=== PATIENT | male | born 1975 | race Caucasian/White ===

== ENCOUNTER 2020-05-02 09:36 | Outpatient (CLI) | payer SELFPAY ==
[2020-05-02 11:06] LABS: Alanine Aminotransferase 69 U/L (16-63); Albumin Level 4.4 g/dL (3.4-5.0); Alkaline Phosphatase 64 U/L (46-116); Anion Gap 10 mmol/L (8-16); Aspartate Amino Transferase 28 U/L (15-37); Bilirubin,Total 0.4 mg/dL (0.00-1.00); Blood Urea Nitrogen 11 mg/dL (7-18); Calcium 9.3 mg/dL (8.5-10.1); Carbon Dioxide 27 mmol/L (21-32); Chloride 103 mmol/L (98-108); Cholesterol 200 mg/dL (0-200); Estimated Glomerular Filt Rate > 60; Glucose 98 mg/dL (70-99); HDL Direct 55 mg/dL (40-60); LDL Cholesterol Calculated 119 mg/dL (<130); Osmolality Calculated 289 mOsm/kg (285-295); Potassium 4.8 mmol/L (3.5-5.1); Sodium 140 mmol/L (136-145); Triglycerides 132 mg/dL (0-150)
== END 2020-05-02 09:37 | disposition home or self-care (01) ==
LOC: CHSLAB 09:39
PROVIDERS: PCP Internal Medicine; Visit Provider Internal Medicine
DX: E78.5 Hyperlipidemia, unspecified (principal)
CPT/HCPCS: 36415; 80053; 80061

== ENCOUNTER 2021-02-01 16:47 | Outpatient (CLI) | payer OTHER, SELFPAY ==
--- NOTE | ~2021-02-01 | XR_ITS ---
EXAMINATION: XR wrist RT min 3V DATE: 02/01/2021 17:17 INDICATION: Posterior right wrist pain TECHNIQUE: Posteroanterior, ulnar deviation, oblique, and lateral views of the right wrist were obtai abhinav. COMPARISON: 03/23/2008 FINDINGS: Old healed fracture deformity at the radial styloid process. No acute fracture. Advanced osteoarthrit is at the midcarpal joint involving the articulation between the lunate, the capitate and hamate with remodeling and loss of bone stock at the proximal pole of the hamate and prominent dorsal osteophyte s arising from the lunate and hamate. Mild osteoarthritis of the radiocarpal and triscaphe joints. IMPRESSION: 1. 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 Reviewed, dictated and finalized at location A.
== END 2021-02-01 16:48 | disposition home or self-care (01) ==
LOC: CHSIMG 16:49
PROVIDERS: PCP Internal Medicine; Visit Provider Internal Medicine
DX: M25.531 Pain in right wrist (principal)
CPT/HCPCS: 73110

== ENCOUNTER 2021-03-31 17:58 | Outpatient (CLI) | payer OTHER, SELFPAY ==
[2021-03-31 18:47] LABS: SARS-CoV-2 RNA PCR Positive (Negative)
== END 2021-03-31 17:59 | disposition home or self-care (01) ==
LOC: CHSLAB 18:01
PROVIDERS: PCP Internal Medicine; Visit Provider Internal Medicine
DX: U07.1 COVID-19 (principal)
CPT/HCPCS: C9803; U0003; U0005

== ENCOUNTER 2021-06-14 16:57 | Outpatient (CLI) | payer OTHER, SELFPAY ==
[2021-06-14 17:32] LABS: Hemoglobin A1C 6.2 % (<5.7)
[2021-06-14 17:49] LABS: Alanine Aminotransferase 71 U/L (16-63); Albumin Level 4.2 g/dL (3.4-5.0); Alkaline Phosphatase 81 U/L (46-116); Anion Gap 11 mmol/L (8-16); Aspartate Amino Transferase 26 U/L (15-37); Bilirubin,Total 0.4 mg/dL (0.00-1.00); Blood Urea Nitrogen 11 mg/dL (7-18); Carbon Dioxide 28 mmol/L (21-32); Chloride 102 mmol/L (98-108); Cholesterol 171 mg/dL (0-200); Estimated Glomerular Filt Rate > 60; Glucose 102 mg/dL (70-99); HDL Direct 57 mg/dL (40-60); LDL Cholesterol Calculated 91 mg/dL (<130); Osmolality Calculated 291 mOsm/kg (285-295); Potassium 4.1 mmol/L (3.5-5.1); Sodium 141 mmol/L (136-145); Total Protein 7.8 g/dL (6.4-8.2); Triglycerides 113 mg/dL (0-150)
== END 2021-06-14 16:58 | disposition home or self-care (01) ==
LOC: CHSLAB 16:59
PROVIDERS: PCP Internal Medicine; Visit Provider Internal Medicine
DX: E78.5 Hyperlipidemia, unspecified (principal); R73.01 Impaired fasting glucose
CPT/HCPCS: 36415; 80053; 80061; 83036

== ENCOUNTER 2022-07-01 07:05 | Outpatient (CLI) | payer OTHER, SELFPAY ==
[2022-07-01 07:19] LABS: Basophils Absolute Auto 0.07 K/mm3 (0.00-0.10); Basophils Percent Auto 0.8 % (0.0-1.0); Eosinophils Absolute Auto 0.28 K/mm3 (0.02-0.50); Eosinophils Percent Auto 3.2 % (1.0-6.0); Hematocrit 41.9 % (40.0-54.0); Hemoglobin 14.2 g/dL (14.0-18.0); Immature Granulocyte Absolute 0.06 K/mm3 (0.00-0.00); Immature Granulocyte Percent A 0.7 % (0.0-0.0); Lymphocytes Absolute Auto 2.63 K/mm3 (1.10-4.50); Lymphocytes Percent Auto 30.5 % (18.0-42.0); Mean Corpuscular HGB Conc 33.9 g/dL (32.0-36.0); Mean Corpuscular Hemoglobin 30.3 pg (27.0-31.0); Mean Corpuscular Volume 89.5 fL (78.0-102.0); Mean Platelet Volume 8.8 fl (8.7-11.0); Monocytes Absolute Auto 0.87 K/mm3 (0.10-0.90); Monocytes Percent Auto 10.1 % (2.0-11.0); Neutrophils Absolute Auto 4.7 K/mm3 (1.7-7.2); Neutrophils Percent Auto 54.7 % (50.0-70.0); Platelet Count Result 330 K/mm3 (150-420); Red Blood Count 4.68 M/mm3 (4.70-6.10); Red Cell Distribution Width 12.4 % (11.6-14.4); White Blood Count 8.6 K/mm3 (4.8-10.8)
[2022-07-01 07:30] LABS: Hemoglobin A1C 7.5 % (<5.7)
[2022-07-01 08:06] LABS: Alanine Aminotransferase 74 U/L (16-63); Alkaline Phosphatase 87 U/L (46-116); Anion Gap 9 mmol/L (8-16); Aspartate Amino Transferase 25 U/L (15-37); Bilirubin,Total 0.5 mg/dL (0.00-1.00); Blood Urea Nitrogen 13 mg/dL (7-18); Calcium 8.9 mg/dL (8.5-10.1); Carbon Dioxide 28 mmol/L (21-32); Chloride 99 mmol/L (98-108); Cholesterol 170 mg/dL (0-200); Creatine Kinase 94 U/L (39-308); Estimated Glomerular Filt Rate > 60; Glucose 180 mg/dL (70-99); HDL Direct 47 mg/dL (40-60); LDL Cholesterol Calculated 100 mg/dL (<130); Osmolality Calculated 287 mOsm/kg (285-295); Potassium 4.8 mmol/L (3.5-5.1); Sodium 136 mmol/L (136-145); Total Protein 7.6 g/dL (6.4-8.2); Triglycerides 117 mg/dL (0-150)
== END 2022-07-01 07:06 | disposition home or self-care (01) ==
LOC: CHSLAB 07:07
PROVIDERS: PCP Internal Medicine; Visit Provider Internal Medicine
DX: E78.2 Mixed hyperlipidemia (principal); R73.01 Impaired fasting glucose
CPT/HCPCS: 36415; 80053; 80061; 82550; 83036; 85025

== ENCOUNTER 2023-02-13 16:25 | Emergency (ER) | payer OTHER, SELFPAY ==
[2023-02-13 16:25] VITALS: BP 131/89; PULSE 65; RESP 16; TEMP 36.7; O2SAT 98
--- NOTE | 2023-02-13 17:12 | ED.GENADULT ---
HPI - General Adult General Chief complaint: Abdominal Pain Stated complaint: abdominal pain for 6-7 days Time Seen by Provider: 02/13/23 16:35 History of Present Illness HPI narrative: Healthy 47yo man, nonsmoker, presents with intermittent abdominal pain, all quadrants, started 6 days ago, comes and goes. When it comes on is severe, then resolves after a couple of hours. No vomiting, diarrhea, bleeding, dysuria. Has never had this before. FHx only positive for DM, otherwise no cardiovascular events. Related Data Home Medications Medication Instructions Recorded Confirmed atorvastatin 40 mg tablet 40 mg PO DAILY 02/13/23 02/13/23 metformin 500 mg tablet,extended 500 mg PO DAILY 02/13/23 02/13/23 release 24 hr venlafaxine 150 mg 150 mg PO DAILY 02/13/23 02/13/23 capsule,extended release 24 hr Allergies Allergy/AdvReac Type Severity Reaction Status Date / Time No Known Allergies Allergy Verified 02/13/23 16:35 Review of Systems Review of Systems: All systems reviewed & are unremarkable except as noted in HPI and below Constitutional: Constitutional: Denies chills and Denies fever(s) ENT: Denies dysphagia Cardiovascular: Cardiovascular: Denies chest pain Respiratory: Respiratory: Denies dyspnea PMFSH Social History Social History Alcohol intake: current Exam Const: General: healthy appearing and no acute distress Nutritional Appearance: well nourished Eyes: Conjunctivae: conjunctivae normal Resp: Effort & Inspection: normal respiratory effort and not labored Cardio: Rate: regular rate GI: Inspection: non-distended GI Palp: Yes Soft to palpation and No Tenderness to palpation present (GI) Skin: General skin exam: normal color, no jaundice and no pallor Extrem: General: no clubbing, cyanosis or edema Course Vital Signs Vital signs: Vital Signs Temperature 36.7 C 02/13/23 16:25 Pulse Rate 65 02/13/23 16:25 Respiratory Rate 16 02/13/23 16:25 Blood Pressure 131/89 02/13/23 16:25 Pulse Oximetry 98 02/13/23 16:25 Oxygen Delivery Room Air 02/13/23 16:25 Temperature 36.7 C 02/13/23 16:25 Pulse Rate 65 02/13/23 16:25 Respiratory Rate 16 02/13/23 16:25 Blood Pressure 131/89 02/13/23 16:25 Pulse Oximetry 98 02/13/23 16:25 Oxygen Delivery Room Air 02/13/23 16:25 Medical Decision Making MDM Narrative Medical decision making narrative: Intermittent generalized abdominal pain, normal exam DDx likely indigestion, intestinal cramps, stomach virus, stress. No evidence of acute inflammation such as pancreatitis, cholecystitis, colitis, cystitis. No postprandial symptoms to indicate peptic ulcer or gastritis or biliary colic. No constant pain to suggest aorta. Discussed differential with pt, who would like to defer labs and imaging at this time and isntead try meds for symptomatic relief. If no improvement, he would like to then return for further workup. Vital Signs Vital Signs: Vital Signs Temperature 36.7 C 02/13/23 16:25 Pulse Rate 65 02/13/23 16:25 Respiratory Rate 16 02/13/23 16:25 Blood Pressure 131/89 02/13/23 16:25 Pulse Oximetry 98 02/13/23 16:25 Oxygen Delivery Room Air 02/13/23 16:25 Temperature 36.7 C 02/13/23 16:25 Pulse Rate 65 02/13/23 16:25 Respiratory Rate 16 02/13/23 16:25 Blood Pressure 131/89 02/13/23 16:25 Pulse Oximetry 98 02/13/23 16:25 Oxygen Delivery Room Air 02/13/23 16:25 Discharge Plan Discharge Clinical Impression: Intermittent abdominal pain Patient Disposition: Home, Self-Care Condition: Stable Instructions: Abdominal Pain (ED) Additional Instructions: Take the prescribed medications as needed for any attacks of pain or nausea. If symptoms not improving, follow-up with your regular physician for further evaluation. If pain is severe and requires immediate relief, return to the emergenc
[2023-02-13 17:25] VITALS: BP 125/60; PULSE 62; RESP 16; TEMP 36.6; O2SAT 100
[2023-02-13 17:41] LABS: Appearance Urine Clear (Clear); Bilirubin Urine Negative (Negative); Blood Urine Negative (Negative); Color Urine Light Yellow (Yellow); Glucose Urine UA Negative (Negative); Ketones Urine Negative (Negative); Leukocyte Esterase Ur Negative LEU/UL (Negative); Nitrate Urine Negative (Negative); Protein Urine Negative (Negative); Specific Grav Ur 1.015 (1.010-1.020); Urobilinogen Urine 0.2 mg/dL (0.2-1.0)
[2023-02-13 17:44] LABS: Add Urine Microscopic? NO
== END 2023-02-13 17:40 | disposition home or self-care (01) ==
PROVIDERS: Emergency Provider Emergency Medicine; PCP Internal Medicine
DX: R10.9 Unspecified abdominal pain (principal); Z79.84 Long term (current) use of oral hypoglycemic drugs
CPT/HCPCS: 81003; 99283

== ENCOUNTER 2023-03-04 09:36 | Outpatient (CLI) | payer OTHER, SELFPAY ==
[2023-03-04 10:20] LABS: Basophils Absolute Auto 0.04 K/mm3 (0.00-0.10); Basophils Percent Auto 0.5 % (0.0-1.0); Eosinophils Absolute Auto 0.72 K/mm3 (0.02-0.50); Eosinophils Percent Auto 9.5 % (1.0-6.0); Hematocrit 46.4 % (40.0-54.0); Hemoglobin 15.7 g/dL (14.0-18.0); Immature Granulocyte Absolute 0.02 K/mm3 (0.00-0.00); Immature Granulocyte Percent A 0.3 % (0.0-0.0); Lymphocytes Absolute Auto 2.32 K/mm3 (1.10-4.50); Lymphocytes Percent Auto 30.6 % (18.0-42.0); Mean Corpuscular HGB Conc 33.8 g/dL (32.0-36.0); Mean Corpuscular Hemoglobin 30.8 pg (27.0-31.0); Mean Platelet Volume 8.8 fl (8.7-11.0); Monocytes Absolute Auto 0.66 K/mm3 (0.10-0.90); Monocytes Percent Auto 8.7 % (2.0-11.0); Neutrophils Absolute Auto 3.8 K/mm3 (1.7-7.2); Neutrophils Percent Auto 50.4 % (50.0-70.0); Platelet Count Result 288 K/mm3 (150-420); Red Cell Distribution Width 12.1 % (11.6-14.4); White Blood Count 7.6 K/mm3 (4.8-10.8)
[2023-03-04 10:29] LABS: Alanine Aminotransferase 45 U/L (16-63); Albumin Level 4.4 g/dL (3.4-5.0); Alkaline Phosphatase 91 U/L (46-116); Anion Gap 7 mmol/L (8-16); Aspartate Amino Transferase 19 U/L (15-37); Bilirubin,Total 0.7 mg/dL (0.00-1.00); Blood Urea Nitrogen 16 mg/dL (7-18); Calcium 9.9 mg/dL (8.5-10.1); Carbon Dioxide 30 mmol/L (21-32); Chloride 102 mmol/L (98-108); Cholesterol 163 mg/dL (0-200); Creatine Kinase 86 U/L (39-308); Estimated Glomerular Filt Rate > 60; Glucose 112 mg/dL (70-99); HDL Direct 55 mg/dL (40-60); LDL Cholesterol Calculated 93 mg/dL (<130); Osmolality Calculated 290 mOsm/kg (285-295); Potassium 4.9 mmol/L (3.5-5.1); Sodium 139 mmol/L (136-145); Total Protein 7.9 g/dL (6.4-8.2); Triglycerides 75 mg/dL (0-150)
== END 2023-03-04 09:37 | disposition home or self-care (01) ==
LOC: CHSLAB 09:38
PROVIDERS: PCP Internal Medicine; Visit Provider Internal Medicine
DX: N39.0 Urinary tract infection, site not specified (principal); E78.2 Mixed hyperlipidemia; E11.65 Type 2 diabetes mellitus with hyperglycemia
CPT/HCPCS: 36415; 80053; 80061; 82550; 83036; 85025

== ENCOUNTER 2024-02-28 17:01 | Outpatient (CLI) | payer OTHER, SELFPAY ==
--- NOTE | ~2024-02-28 | XR_ITS ---
EXAMINATION: XR shoulder LT min 2V DATE: 02/28/2024 17:18 INDICATION: Left shoulder pain. TECHNIQUE: 4 views of left shoulder were obtained. COMPARISON: None. FINDINGS: Alignment is normal. No fracture. Glenohumeral joint is normal. There is moderate acromiocl avicular joint osteoarthritis. IMPRESSION: 1. Moderate left acromioclavicular joint osteoarthritis. Reviewed, dictated and finalized at location A.
--- NOTE | ~2024-02-28 | XR_ITS ---
EXAMINATION: XR shoulder RT min 2V DATE: 02/28/2024 17:17 INDICATION: Shoulder pain. TECHNIQUE: 4 views of right shoulder were obtained. COMPARISON: None. FINDINGS: Bone alignment is normal. No fracture. There is moderate acromioclavicular joint osteoarthr itis. Glenohumeral joint is normal. IMPRESSION: 1. Moderate acromioclavicular joint osteoarthritis. Reviewed, dictated and finalized at location A.
== END 2024-02-28 17:02 | disposition home or self-care (01) ==
LOC: CHSIMG 17:03
PROVIDERS: PCP Internal Medicine; Visit Provider Internal Medicine
DX: M25.512 Pain in left shoulder (principal); M25.511 Pain in right shoulder; M19.012 Primary osteoarthritis, left shoulder; M19.011 Primary osteoarthritis, right shoulder
CPT/HCPCS: 73030

== ENCOUNTER 2024-10-24 08:30 | Outpatient (CLI) | payer OTHER, SELFPAY ==
--- NOTE | ~2024-10-24 | MR_ITS ---
MRI of the cervical spine Clinical History: Radiculopathy Technique: Axial T2-weighted and gradient images, and sagittal T1-weighted, T2-weighted, and STIR allyson ges were acquired. Findings: There is straightening of the normal cervical lordosis. No fracture or subluxation. There i s marrow edema about the C5-C6 disc space, likely reactive due to underlying degenerative disc diseas e. At C2-C3, there is no disc bulge or herniation. There is no spinal canal stenosis, cord compression o r neural foraminal narrowing. At C3-C4, there is no disc bulge or herniation. No spinal canal stenosis, cord compression, or defini te neural foraminal narrowing. At C4-C5, there is no disc bulge or herniation. There is mild facet arthropathy. No central canal solange nosis, cord compression, or neural foraminal narrowing. At C5-C6, there is moderate degenerative disc narrowing with mild disc osteophyte complex. There is m ild canal stenosis without bee cord compression. There is left neural foraminal narrowing. Right ne ural foramen preserved. At C6-C7, there is mild disc osteophyte complex. There is mild canal stenosis without bee cord comp ression. There is bilateral neural foraminal narrowing. No abnormal signal seen in the spinal cord. Paravertebral soft tissues are unremarkable. Impression: Moderate degenerative spondylosis at C5-C6 and C6-C7, as detailed above. Reviewed, dictated and finalized at [facility]. Impression: Moderate degenerative spondylosis at C5-C6 and C6-C7, as detailed above.
--- OUTSIDE RECORDS SUMMARY | 2024-10-24 08:39 | XMS_ITS | Clinical Summary ---
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
--- OUTSIDE RECORDS SUMMARY | 2024-10-24 08:39 | XMS_ITS | Continuity of Care Document ---
Author Name [facility] Organization [facility] Care Team Providers Care Chinese Language Professor Name Role Phone [facility] Unavailable Unavailable Problems Combined list of problems from Department of Defense and Veterans Affairs facilities. It does not include entries that were removed or entered in error. Problem Status Onset Date Problem Type Date of Resolution Comme nts Source visit for: services physical Inactive Condition DoD visit for: ears, nose, and throat exam Inactive Condition DoD Encounters Combined list of: 1) Encounters from Department of Veterans Affairs facilities going backup to the last 18 months, not all [place] inpatient encounters are included; 2) Encounters from the Department of [facility] facilities going backup to 280 months. Location Location Details Encounter Type Encounter Number Reason For Visit Attending Provider ADM Date DC Date Status Disposition Source [facility] [place] [place] [facility] OUTPATIENT [id number] group hearing test [facility] 02/02 Released w/o Limitations [facility] [place] [place] [facility] Outpatient Encounter [id number] 2 10/02 [facility] Procedures Combined list of: 1) Procedures from Department of Veterans Affairs facilities going back up to thelast 18 months, not all [place] non-surgical procedures are included; 2) All procedures from the Department of [facility] facilities. Procedure Procedure Type Code Date Perfomer Comments [facility] e ENT Services ENT Services [id number] 02/02/2005 [facility] Patient education, not otherwise cla ified, non-physician provider, group, per se ion 02/02/2005 [facility] Audiometry Group Testing Audiometry Group Testing [id number] 02/02/2005 [facility] Ear Protector Attenuation Measurements Ear Protector Attenuation Measurements [id number] 02/02/2005 [facility] EDUCATIONAL SUPPLIES, SUCH BOOKS, TAPES, AND PAMPHLETS, FOR THE PATIENT'S EDUCATION AT COST TO PHYSICIAN OR OTHER QUALIFIED HEALTH CIVIL MANAGER 06/03/2002 [facility] INFLUENZA VIRUS VACCINE, TRIVALENT (IIV3), SPLIT VIRUS, 0.5 ML DOSAGE, FOR INTRAMUSCULAR USE 04/29/2005 [facility] UNLISTED VACCINE/TOXOID 03/15/2005 [facility] TYPHOID VACCINE, ACETONE-KILLED, DRIED (AKD), FOR SUBCUTANEOUS USE ([place] ) 02/03/2005 [facility] AUDIOMETRIC TESTING OF GROUPS 02/02/2005 DoD Social History Combined list of available smoking, tobacco, and other social history from Department of Defense and Veterans Affairs facilities. Social History Type Response Date Comment Sourc e This section is an empty social history section. DoD
== END 2024-10-24 08:31 | disposition home or self-care (01) ==
LOC: CHSIMG 08:32
PROVIDERS: PCP Internal Medicine; Visit Provider Internal Medicine
DX: M54.12 Radiculopathy, cervical region (principal); M43.02 Spondylolysis, cervical region
CPT/HCPCS: 72141